=== PATIENT | female | born 1935 | race Caucasian/White ===

== ENCOUNTER → 2017-04-15 09:04 | Outpatient (CLI) | payer OTHER | END | disposition home or self-care (01) | LOC: LAB 09:04 | DX: E78.2 Mixed hyperlipidemia (principal); I11.9 Hypertensive heart disease without heart failure; R73.02 Impaired glucose tolerance (oral); E03.8 Other specified hypothyroidism; E55.9 Vitamin D deficiency, unspecified ==

== ENCOUNTER 2017-05-22 10:20 | Outpatient (CLI) | payer OTHER | END 2017-05-22 10:30 | disposition home or self-care (01) | LOC: NUCLEAR 10:20 | DX: I20.0 Unstable angina (principal); E78.2 Mixed hyperlipidemia; R73.01 Impaired fasting glucose | CPT/HCPCS: 78452; 93017; A9500 ==

== ENCOUNTER → 2017-05-31 | Outpatient (CLI) | payer OTHER | END | disposition home or self-care (01) | LOC: RAD 11:51 | DX: M77.41 Metatarsalgia, right foot (principal) ==

== ENCOUNTER → 2017-07-02 07:33 | Outpatient (CLI) | payer OTHER | END | disposition home or self-care (01) | LOC: LAB 07:33 | DX: R10.9 Unspecified abdominal pain (principal); E78.2 Mixed hyperlipidemia; R73.02 Impaired glucose tolerance (oral); I11.9 Hypertensive heart disease without heart failure; E78.4 Other hyperlipidemia ==

== ENCOUNTER 2017-08-05 09:58 | Outpatient (CLI) | payer OTHER | END 2017-08-05 13:35 | disposition home or self-care (01) | LOC: SONOGRAMA 09:58 → MAMO-SONO 13:15 → SONOGRAMA 13:35 | DX: E04.2 Nontoxic multinodular goiter (principal); E04.0 Nontoxic diffuse goiter ==

== ENCOUNTER 2017-08-06 07:15 | Outpatient (CLI) | payer OTHER | END 2017-08-06 07:21 | disposition home or self-care (01) | LOC: LAB 07:15 | DX: I11.0 Hypertensive heart disease with heart failure (principal); D53.8 Other specified nutritional anemias; N39.0 Urinary tract infection, site not specified; E78.2 Mixed hyperlipidemia; E11.9 Type 2 diabetes mellitus without complications; E04.0 Nontoxic diffuse goiter; D58.0 Hereditary spherocytosis; D55.8 Other anemias due to enzyme disorders ==

== ENCOUNTER 2017-08-14 09:16 | Outpatient (CLI) | payer OTHER | END 2017-08-14 13:36 | disposition home or self-care (01) | LOC: TOM 09:16 | DX: M27.8 Other specified diseases of jaws (principal) | CPT/HCPCS: 70487; Q9965 ==

== ENCOUNTER 2017-08-30 08:07 | Outpatient (CLI) | payer OTHER | END 2017-08-30 08:20 | disposition home or self-care (01) | LOC: LAB 08:07 | DX: E78.2 Mixed hyperlipidemia (principal) ==

== ENCOUNTER 2017-10-03 07:42 | Outpatient (CLI) | payer OTHER | END 2017-10-03 07:43 | disposition home or self-care (01) | LOC: LAB 07:42 | DX: C54.1 Malignant neoplasm of endometrium (principal) ==

== ENCOUNTER 2017-11-25 08:30 | Outpatient (CLI) | payer OTHER | END 2017-11-25 08:42 | disposition home or self-care (01) | LOC: SONOGRAMA 08:30 → MAMO-SONO 08:45 | DX: E80.6 Other disorders of bilirubin metabolism (principal); I11.9 Hypertensive heart disease without heart failure; E78.2 Mixed hyperlipidemia ==

== ENCOUNTER 2017-12-31 07:32 | Outpatient (CLI) | payer OTHER | END 2017-12-31 09:14 | disposition home or self-care (01) | LOC: LAB 07:32 | DX: D64.89 Other specified anemias (principal); N39.0 Urinary tract infection, site not specified; R10.84 Generalized abdominal pain; E03.8 Other specified hypothyroidism; E78.4 Other hyperlipidemia; R80.8 Other proteinuria; E11.9 Type 2 diabetes mellitus without complications; R73.09 Other abnormal glucose; R73.02 Impaired glucose tolerance (oral); E78.2 Mixed hyperlipidemia; I10 Essential (primary) hypertension ==

== ENCOUNTER 2018-01-07 07:43 | Outpatient (CLI) | payer OTHER | END 2018-01-07 07:52 | disposition home or self-care (01) | LOC: LAB 07:43 | DX: I11.0 Hypertensive heart disease with heart failure (principal); E04.0 Nontoxic diffuse goiter; E78.2 Mixed hyperlipidemia; D55.9 Anemia due to enzyme disorder, unspecified; D53.8 Other specified nutritional anemias; N39.0 Urinary tract infection, site not specified ==

== ENCOUNTER 2018-01-07 08:35 | Outpatient (CLI) | payer OTHER | END 2018-01-07 08:41 | disposition home or self-care (01) | LOC: RAD 08:35 | DX: M12.562 Traumatic arthropathy, left knee (principal); M12.561 Traumatic arthropathy, right knee ==

== ENCOUNTER 2018-02-18 07:42 | Outpatient (CLI) | payer OTHER | END 2018-02-18 08:02 | disposition home or self-care (01) | LOC: LAB 07:42 | DX: E11.9 Type 2 diabetes mellitus without complications (principal); I10 Essential (primary) hypertension; D63.8 Anemia in other chronic diseases classified elsewhere; D64.89 Other specified anemias; E78.2 Mixed hyperlipidemia; E03.8 Other specified hypothyroidism; K76.89 Other specified diseases of liver; E55.9 Vitamin D deficiency, unspecified; D01.0 Carcinoma in situ of colon; N39.8 Other specified disorders of urinary system; N39.0 Urinary tract infection, site not specified; K92.1 Melena; K73.8 Other chronic hepatitis, not elsewhere classified; Z12.12 Encounter for screening for malignant neoplasm of rectum; K76.1 Chronic passive congestion of liver; R80.8 Other proteinuria; R30.0 Dysuria ==

== ENCOUNTER 2018-02-21 12:05 | Outpatient (CLI) | payer OTHER | END 2018-02-21 12:13 | disposition home or self-care (01) | LOC: LAB 12:05 | DX: E11.9 Type 2 diabetes mellitus without complications (principal); I10 Essential (primary) hypertension; D63.8 Anemia in other chronic diseases classified elsewhere; D64.89 Other specified anemias; E78.2 Mixed hyperlipidemia; E03.8 Other specified hypothyroidism; K76.89 Other specified diseases of liver; E55.9 Vitamin D deficiency, unspecified; C56.9 Malignant neoplasm of unspecified ovary; D01.0 Carcinoma in situ of colon; N39.8 Other specified disorders of urinary system; K92.1 Melena; B18.8 Other chronic viral hepatitis; Z12.12 Encounter for screening for malignant neoplasm of rectum; K76.1 Chronic passive congestion of liver; R80.8 Other proteinuria; R30.0 Dysuria ==

== ENCOUNTER 2018-07-08 11:00 | Outpatient (CLI) | payer OTHER | END 2018-07-08 11:02 | disposition home or self-care (01) | LOC: RAD 11:00 | DX: J44.1 Chronic obstructive pulmonary disease with (acute) exacerbation (principal) ==

== ENCOUNTER 2018-07-24 08:05 | Outpatient (CLI) | payer OTHER | END 2018-07-24 08:12 | disposition home or self-care (01) | LOC: LAB 08:05 | DX: D64.89 Other specified anemias (principal); N39.0 Urinary tract infection, site not specified; R10.9 Unspecified abdominal pain; E78.49 Other hyperlipidemia; R80.8 Other proteinuria; E11.9 Type 2 diabetes mellitus without complications; I11.9 Hypertensive heart disease without heart failure ==

== ENCOUNTER 2018-08-05 08:08 | Outpatient (CLI) | payer OTHER | END 2018-08-05 12:37 | disposition home or self-care (01) | LOC: SONOGRAMA 08:08 → MAMO-SONO 09:15 → SONOGRAMA 12:37 | DX: E04.2 Nontoxic multinodular goiter (principal) ==

== ENCOUNTER 2018-08-05 08:15 | Outpatient (CLI) | payer OTHER | END 2018-08-05 08:40 | disposition home or self-care (01) | LOC: LAB 08:15 | DX: E04.0 Nontoxic diffuse goiter (principal); I11.0 Hypertensive heart disease with heart failure; E78.2 Mixed hyperlipidemia; E55.9 Vitamin D deficiency, unspecified; N39.0 Urinary tract infection, site not specified; D53.8 Other specified nutritional anemias; N36.2 Urethral caruncle; E58 Dietary calcium deficiency ==

== ENCOUNTER → 2019-01-20 07:23 | Outpatient (CLI) | payer OTHER | END | disposition home or self-care (01) | LOC: LAB 07:23 | DX: E11.9 Type 2 diabetes mellitus without complications (principal); I10 Essential (primary) hypertension; D63.1 Anemia in chronic kidney disease; D64.89 Other specified anemias; E78.2 Mixed hyperlipidemia; E03.8 Other specified hypothyroidism; K76.89 Other specified diseases of liver; E55.9 Vitamin D deficiency, unspecified; N39.0 Urinary tract infection, site not specified; N39.8 Other specified disorders of urinary system; K92.1 Melena; B18.8 Other chronic viral hepatitis; Z12.12 Encounter for screening for malignant neoplasm of rectum; C54.2 Malignant neoplasm of myometrium; K76.1 Chronic passive congestion of liver; R80.8 Other proteinuria; R30.0 Dysuria ==

== ENCOUNTER 2019-01-21 08:54 | Outpatient (CLI) | payer OTHER | END 2019-01-21 09:01 | disposition home or self-care (01) | LOC: LAB 08:54 | DX: E11.9 Type 2 diabetes mellitus without complications (principal); I10 Essential (primary) hypertension; D63.8 Anemia in other chronic diseases classified elsewhere; D64.89 Other specified anemias; E78.00 Pure hypercholesterolemia, unspecified; E78.2 Mixed hyperlipidemia; E03.8 Other specified hypothyroidism; K76.89 Other specified diseases of liver; E55.9 Vitamin D deficiency, unspecified; N39.0 Urinary tract infection, site not specified; N39.8 Other specified disorders of urinary system; D01.0 Carcinoma in situ of colon; B18.8 Other chronic viral hepatitis; Z12.12 Encounter for screening for malignant neoplasm of rectum; C54.2 Malignant neoplasm of myometrium; K76.1 Chronic passive congestion of liver; R80.8 Other proteinuria; R30.0 Dysuria ==

== ENCOUNTER 2019-02-09 07:29 | Outpatient (CLI) | payer OTHER | END 2019-02-09 07:37 | disposition home or self-care (01) | LOC: LAB 07:29 | DX: N39.0 Urinary tract infection, site not specified (principal); D53.8 Other specified nutritional anemias; I10 Essential (primary) hypertension; E78.2 Mixed hyperlipidemia; E11.9 Type 2 diabetes mellitus without complications; E04.1 Nontoxic single thyroid nodule ==

== ENCOUNTER → 2019-04-15 08:12 | Outpatient (CLI) | payer OTHER | END | disposition home or self-care (01) | LOC: LAB 08:12 | DX: D64.89 Other specified anemias (principal); R10.84 Generalized abdominal pain; E78.49 Other hyperlipidemia ==

== ENCOUNTER 2019-05-14 07:37 | Outpatient (CLI) | payer OTHER | END 2019-05-14 07:44 | disposition home or self-care (01) | LOC: LAB 07:37 | DX: E78.2 Mixed hyperlipidemia (principal); I10 Essential (primary) hypertension; E11.9 Type 2 diabetes mellitus without complications; E03.8 Other specified hypothyroidism ==

== ENCOUNTER 2019-07-29 08:30 | Outpatient (CLI) | payer OTHER | END 2019-07-29 08:48 | disposition home or self-care (01) | LOC: LAB 08:30 | DX: I11.0 Hypertensive heart disease with heart failure (principal); D53.8 Other specified nutritional anemias; E04.8 Other specified nontoxic goiter; E55.9 Vitamin D deficiency, unspecified; E58 Dietary calcium deficiency; N39.0 Urinary tract infection, site not specified; N36.2 Urethral caruncle; Z12.11 Encounter for screening for malignant neoplasm of colon; R73.03 Prediabetes ==

== ENCOUNTER → 2019-07-31 08:03 | Outpatient (CLI) | payer OTHER | END | disposition home or self-care (01) | LOC: LAB 08:03 | DX: E04.8 Other specified nontoxic goiter (principal); I11.0 Hypertensive heart disease with heart failure; D53.8 Other specified nutritional anemias; E55.9 Vitamin D deficiency, unspecified; E53.8 Deficiency of other specified B group vitamins; N39.0 Urinary tract infection, site not specified; N36.2 Urethral caruncle; Z12.11 Encounter for screening for malignant neoplasm of colon; R73.03 Prediabetes ==

== ENCOUNTER 2019-07-31 08:26 | Outpatient (CLI) | payer OTHER | END 2019-07-31 08:28 | disposition home or self-care (01) | LOC: SONOGRAMA 08:26 | DX: R10.13 Epigastric pain (principal); E04.1 Nontoxic single thyroid nodule ==

== ENCOUNTER 2019-08-14 08:06 | Outpatient (CLI) | payer OTHER | END 2019-08-14 08:16 | disposition home or self-care (01) | LOC: LAB 08:06 | DX: I10 Essential (primary) hypertension (principal); E11.9 Type 2 diabetes mellitus without complications; E03.8 Other specified hypothyroidism; E78.2 Mixed hyperlipidemia ==

== ENCOUNTER → 2019-08-18 10:57 | Outpatient (CLI) | payer OTHER | END | disposition home or self-care (01) | LOC: LAB 10:57 | DX: R94.5 Abnormal results of liver function studies (principal); Z12.11 Encounter for screening for malignant neoplasm of colon ==

== ENCOUNTER → 2019-10-05 11:45 | Outpatient (CLI) | payer OTHER | END | disposition home or self-care (01) | LOC: LAB 11:45 | PROVIDERS: ATTEND Radiology Diagnostic Radiology | DX: N20.0 Calculus of kidney (principal) ==

== ENCOUNTER 2019-10-09 09:13 | Outpatient (CLI) | payer OTHER | END 2019-10-09 14:47 | disposition home or self-care (01) | LOC: TOM 09:13 | PROVIDERS: ATTEND Internal Medicine Gastroenterology | DX: R10.33 Periumbilical pain (principal) | CPT/HCPCS: 74178; Q9965 ==

== ENCOUNTER 2019-10-29 08:05 | Outpatient (CLI) | payer OTHER | END 2019-10-29 08:22 | disposition home or self-care (01) | LOC: RAD 08:05 | PROVIDERS: ATTEND Specialist | DX: R10.84 Generalized abdominal pain (principal); I10 Essential (primary) hypertension; I27.89 Other specified pulmonary heart diseases ==

== ENCOUNTER 2020-07-07 12:35 | Emergency (ER) | payer OTHER ==
[~2020-07-07] VITALS: Ht 152.4 cm; Wt 68.0 kg
[2020-07-07] MEDS ORDERED: DICLOFENAC SODI75 MG PO (16:58)
== END 2020-07-07 17:00 | disposition home or self-care (01) ==
LOC: ER 12:35
DX: G44.89 Other headache syndrome (principal); M54.2 Cervicalgia

== ENCOUNTER 2020-09-23 08:47 | Outpatient (CLI) | payer OTHER ==
[~2020-09-23 08:47] MED LIST: DICLOFENAC SODI75 MG PO
== END 2020-09-23 08:52 | disposition home or self-care (01) ==
LOC: TOM 08:47
PROVIDERS: ATTEND Internal Medicine Gastroenterology
DX: K76.0 Fatty (change of) liver, not elsewhere classified (principal); K57.90 Diverticulosis of intestine, part unspecified, without perforation or abscess without bleeding; R10.13 Epigastric pain; R10.30 Lower abdominal pain, unspecified

== ENCOUNTER 2021-12-21 12:27 | Outpatient (CLI) | payer OTHER | END 2021-12-21 12:32 | disposition home or self-care (01) | LOC: PPH VACUNA 12:27 | PROVIDERS: ATTEND Emergency Medicine Pediatric Emergency Medicine | DX: Z23 Encounter for immunization (principal) ==

== ENCOUNTER 2022-01-09 11:46 | Outpatient (CLI) | payer OTHER | END 2022-01-09 11:52 | disposition home or self-care (01) | LOC: SONOGRAMA 11:46 | PROVIDERS: ATTEND Internal Medicine Endocrinology, Diabetes & Metabolism | DX: E04.1 Nontoxic single thyroid nodule (principal) ==

== ENCOUNTER 2022-01-12 07:22 | Outpatient (CLI) | payer OTHER | END 2022-01-12 07:29 | disposition home or self-care (01) | LOC: LAB 07:22 | PROVIDERS: ATTEND Internal Medicine Endocrinology, Diabetes & Metabolism | DX: I11.0 Hypertensive heart disease with heart failure (principal); E04.9 Nontoxic goiter, unspecified; D53.9 Nutritional anemia, unspecified; N39.0 Urinary tract infection, site not specified; E78.2 Mixed hyperlipidemia; E11.9 Type 2 diabetes mellitus without complications ==

== ENCOUNTER → 2022-07-09 08:48 | Outpatient (CLI) | payer OTHER ==
[~2022-07-09 08:48] MED LIST changes: +DICLOFENAC POTA50 MG PO
== END | disposition home or self-care (01) ==
LOC: LAB 08:48
PROVIDERS: ATTEND Internal Medicine Endocrinology, Diabetes & Metabolism
DX: D53.9 Nutritional anemia, unspecified (principal); N39.0 Urinary tract infection, site not specified; E78.2 Mixed hyperlipidemia; E11.9 Type 2 diabetes mellitus without complications; E55.9 Vitamin D deficiency, unspecified; E58 Dietary calcium deficiency; N18.2 Chronic kidney disease, stage 2 (mild)

== ENCOUNTER 2023-01-10 11:11 | Outpatient (CLI) | payer OTHER ==
[~2023-01-10 11:11] MED LIST changes: +METHOCARBAMOL500 MG PO
== END 2023-01-10 14:32 | disposition home or self-care (01) ==
LOC: MAMO-SONO 11:11
PROVIDERS: ATTEND Radiology Diagnostic Radiology
DX: Z12.31 Encounter for screening mammogram for malignant neoplasm of breast (principal)

== ENCOUNTER 2023-01-29 13:47 | Outpatient (CLI) | payer OTHER | END 2023-01-29 13:54 | disposition home or self-care (01) | LOC: RAD 13:47 | PROVIDERS: ATTEND Physical Medicine & Rehabilitation | DX: M54.9 Dorsalgia, unspecified (principal); Z88.5 Allergy status to narcotic agent; Z91.018 Allergy to other foods ==

== ENCOUNTER 2025-02-11 07:20 | Outpatient (CLI) | payer OTHER | END 2025-02-11 07:27 | disposition home or self-care (01) | LOC: SONOGRAMA 07:20 | PROVIDERS: ATTEND Internal Medicine Gastroenterology | DX: R16.0 Hepatomegaly, not elsewhere classified (principal); K30 Functional dyspepsia ==